=== PATIENT | male | born 1975 | race Caucasian/White ===

== ENCOUNTER 2016-07-28 20:13 | Emergency (ER) | payer OTHER ==
[2016-07-28] MEDS ORDERED: Ketorolac 60 MG/2 ML SDV IM ONE (20:34)
--- NOTE | 2016-07-28 20:34 | EDM.PDOC ---
ED HPI Trauma - General Chief Complaint: Lower Extremity Injury/Pain Stated Complaint: PT HURT RT ANKLE Time Seen by Provider: 07/28/16 20:30 Source: Reports: Patient History Limitations: Reports: No limitations - History of Present Illness INITIAL COMMENTS - FREE TEXT/NARRATIVE: History of present illness: [40-year-old male comes in status post sports related injury patient had a jump with a misstep while landing with a rolling motion and heard a snap and his right ankle "blew up" area patient has [place] wrap in place with some notable swelling and ice pack in place.] Review of systems: As per history of present illness and below otherwise all systems reviewed and negative. Past medical history: As per history of present illness and as reviewed below otherwise noncontributory. Surgical history: As per history of present illness and as reviewed below otherwise noncontributory. Social history: No reported history of drug or alcohol abuse. Family history: As per history of present illness and as reviewed below otherwise noncontributory. Physical exam: HEENT: Atraumatic, normocephalic, pupils reactive, negative for conjunctival pallor or scleral icterus, mucous membranes moist, throat clear, neck supple, nontender, trachea midline. Lungs: Clear to auscultation, breath sounds equal bilaterally, chest nontender. Heart: S1S2, regular, negative for clicks, rubs, or JVD. Abdomen: Soft, nondistended, nontender. Negative for masses or hepatosplenomegaly. Negative for costovertebral tenderness. Pelvis: Stable nontender. Genitourinary: Deferred. Rectal: Deferred. Extremities: Right foot and ankle with significant amount of edema pedal pulses palpable DP and PT, negative for cords or calf pain. Neurovascular unremarkable. Neuro: Awake, alert, oriented. Cranial nerves II through XII unremarkable. Cerebellum unremarkable. Motor and sensory unremarkable throughout. Exam nonfocal. X-ray of ankle negative for fracture of note is some soft tissue swelling overlying the right lateral malleolus Diagnostics: [X-ray of right ankle] Therapeutics: [Toradol 60 mg IM] Impression: [Ankle pain] Plan: [Ice, elevate, [id number] pain medication followup with PCP for potential ortho referral] Definitive disposition and diagnosis as appropriate pending reevaluation and review of above. Allergies/ADRs: Allergies No Known Allergies Allergy (Verified 07/28/16 20:28) Home Medications: Ambulatory Orders . [No Known Home Meds] 07/28/16 [Confirmed 07/28/16] Review of Systems - Review of Systems Review Of Systems: See Below (See history of present illness) Trauma Exam - Physical Exam Exam: See Below (See history of present illness) Course - Vital Signs Last Recorded V/S: Last Vital Signs Temp 36.7 C 07/28/16 20:20 Pulse 85 07/28/16 20:20 Resp 20 07/28/16 20:20 BP 135/82 07/28/16 20:20 Pulse Ox 96 07/28/16 20:20 - Orders/Labs/Meds Orders: Active Orders 24 hr Category Date Time Status Ankle Min 3V Rt [CR] Stat Exams 07/28/16 20:23 Ordered Meds: Medications Discontinued Medications Generic Name Dose Route Start Last Admin Trade Name Freq PRN Reason Stop Dose Admin Ketorolac Tromethamine 60 mg 07/28/16 20:34 07/28/16 20:44 Toradol IM 07/28/16 20:35 60 mg ONETIME ONE Administration Departure - Departure Time of Disposition: 21:24 Disposition: Home, Self-Care 01 Condition: good Clinical Impression: Acute ankle pain Qualifiers: Laterality: right Qualified Code(s): M25.571 - Pain in right ankle and joints of right foot Forms: ED Department Discharge Additional Instructions: The following information is given to patients seen in the emergency department who are being discharged to home. This information is to outline your options for follow-up care. We provide all patients seen in our emergency department with a follow-up referral. The need for follow-up, as well as the timing and circumstances, are variable depending upon the specifics of your emergency department visit. If you don't have a primary care physician on staff, we will provide you with a referral. We always advise you to contact your personal physician following an emergency department visit to inform them of the circumstance of the visit and for follow-up with them and/or the need for any referrals to a consulting specialist. The emergency department will also refer you to a specialist when appropriate. This referral assures that you have the opportunity for follow-up care with a specialist. All of these measure are taken in an effort to provide you with optimal care, which includes your follow-up. Under all circumstances we always encourage you to contact your private physician who remains a resource for coordinating your care. When calling for follow-up care, please make the office aware that this follow-up is from your recent emergency room visit. If for any reason you are refused follow-up, please contact the [facility] Emergency Department at and asked to speak to the emergency department charge nurse. Followup with primary care 1-2 days Use crutches nonweightbearing to right ankle until evaluated by PCP Take 800 mg of ibuprofen every 8 hours as needed for pain Keep foot elevated and ice for the next 3 days as much is possible Return to to ED as needed as discussed
[2016-07-28 21:42] VITALS: BP 127/80
--- NOTE | 2016-07-29 14:53 | CR ---
EXAM DATE: 07/28/16 PATIENT'S AGE: 40 Patient: JANY OLSON Facility: [place], [place] Site . Site : [id number] Study: XRay Extremity ankle [id number]/28/2017 8:36:32 PM Ordering Physician: Doctor Campos Final Report: Indication: Sports injury Technique: Three views right ankle Comparison: None Findings: Bones: Alignment is normal. No fractures or bone lesions. Joint spaces: Unremarkable. Soft tissues: Soft tissue swelling overlying the right lateral malleolus. Impression: Soft tissue swelling overlying the right lateral malleolus. No acute fracture or subluxation. Dictated by Maddie Donis MD @ Jul 28 2016 8:56PM (Electronic Signature) Report Signed by Proxy and Original Signed Document filed in the Medical Record. [email or web address]
== END 2016-07-28 21:45 | disposition home or self-care (01) ==
LOC: MW.ED 20:13
DX: M25.571 Pain in right ankle and joints of right foot (principal)
CPT/HCPCS: 73610; 96372; 99283; J1885